=== PATIENT | female | born 1955 | race Two or more races ===

== ENCOUNTER 2018-05-19 07:37 | Day surgery (SDC) | payer BC ==
[2018-05-19] MEDS ORDERED: ALBUTEROL SULFATE 0.083% NEB 2.5 MG/3 ML AMPUL NEB ONE (07:54)
[2018-05-19] MEDS ORDERED: FAMOTIDINE INJ/PF 20 MG/2 ML SDV IV ONE (08:35)
[2018-05-19] MEDS ORDERED: METOCLOPRAMIDE HCL INJ/PF 10 MG/2 ML SDV ONE (08:38)
[2018-05-19] MEDS ORDERED: MIDAZOLAM 2 MG/2 ML INJ ONE (09:24)
[2018-05-19] MEDS ORDERED: LIDOCAINE 2% INJ-PF (20 MG/ML) 10 ML AMPUL ONE (09:37)
[2018-05-19] MEDS ORDERED: EPHEDRINE SULFATE INJ 50 MG/1 ML AMPULE ONE (09:38)
[2018-05-19] MEDS ORDERED: PROPOFOL INJ 200 MG/20 ML VIAL IV ONE (09:38)
[2018-05-19] MEDS ORDERED: DEXMEDETOMIDINE INJ 80 MCG/20 ML VIAL IV ONE (09:38)
[2018-05-19] MEDS ORDERED: PROMETHAZINE HCL INJ 25 MG/1 ML VIAL IV PRN (10:42)
[2018-05-19] MEDS ORDERED: FENTANYL CITRATE INJ/PF 100 MCG/2 ML AMPUL IV PRN (10:42)
[2018-05-19] MEDS ORDERED: DIPHENHYDRAMINE HCL 50 MG/ML VIAL IV PRN (10:42)
[2018-05-19 12:57] VITALS: BP 133/62
--- NOTE | 2018-05-19 20:17 | Operative Report ---
Operative Report DATE OF SURGERY: 05/19/18 Operative Report: The risks, benefits and alternatives of the procedure are explained to the patient in detail informed consent is obtained time out is called Propofol medication is provided rectal exam is performed the Olympus videoscope is introduced and advanced to the cecum the prep was good photodocumentation is obtained the scope is slowly withdrawn tubular and concentric views of the colon are obtained retroflexion is performed following this the EGD is performed the esophagus, stomach and duodenum are examined PREOPERATIVE DIAGNOSIS: epigatric pain. change in bowel habits POSTOPERATIVE DIAGNOSIS: right side colon inflammation, biopsy obtained to rule out lymphocytic colitis. internal hemorrhoids. gastritis , biopsy to rule out H.Pylori OPERATION: colonoscopy with biopsy. EGD with biopsy SURGEON: RAJANI VILLAFANA ANESTHESIA: LMAC TISSUE REMOVED OR ALTERED: as noted above COMPLICATIONS: none ESTIMATED BLOOD LOSS: none INTRAOPERATIVE FINDINGS: as noted above PROCEDURE: patient tolerated the procedure well no post procedure complications are noted patient is discharge in good condition discharge date: 05/19/18 discharge activity: regular discharge diet: regular follow up in 2-3 weeks patient is instructed to call the office or go to ED if any problems wait on the biopsy
--- NOTE | 2018-05-19 21:19 | EKG REPORT ---
SEVERITY:- NORMAL ECG - SINUS RHYTHM : Confirmed by: Martin Cates 19-May-2018 21:19:17
== END 2018-05-19 12:35 | disposition home or self-care (01) ==
LOC: OROUT 07:37
PROVIDERS: ATTEND Internal Medicine Gastroenterology
DX: K29.50 Unspecified chronic gastritis without bleeding (principal); K52.9 Noninfective gastroenteritis and colitis, unspecified; K64.8 Other hemorrhoids; K21.9 Gastro-esophageal reflux disease without esophagitis; K92.1 Melena; I10 Essential (primary) hypertension; Z79.899 Other long term (current) drug therapy; Z87.11 Personal history of peptic ulcer disease; Z87.19 Personal history of other diseases of the digestive system
CPT/HCPCS: 43239; 45380; 88305 ×2; 93005; 93010; 94640; J2250; J3490 ×3; J2765; J2704; S0028; 813

== ENCOUNTER → 2018-05-20 | Outpatient (CLI) | payer BC ==
--- NOTE | 2018-05-20 11:59 | RADIOLOGY REPORT (SQ) ---
EXAM DESCRIPTION: MRI LUMBAR SPINE WITHOUT COMPLETED DATE/TIME: 05/20/2018 9:14 am REASON FOR STUDY: LOW BACK PAIN (M54.5) M54.5 LOW BACK PAIN COMPARISON: None. TECHNIQUE: Sagittal and Axial imaging includes T1, T2, STIR and gradient echo sequences. Coronal T2/ HASTE imaging. LIMITATIONS: None. FINDINGS: VISUALIZED UPPER ABDOMEN: Limited evaluation. No acute or suspicious findings suggested. SEGMENTATION: No transitional anatomy. The lowest well-developed disc space is labeled L5-S1. ALIGNMENT: Anatomic. VERTEBRAE: Intact. BONE MARROW: Reactive fatty marrow endplate changes at L1-2, L3-4, and L4-5. DISC SIGNAL: Diffuse decreased T2 weighted intervertebral disc signal throughout the lumbar intervert ebral discs, with high-grade disc space loss of height at L3-4 POSTERIOR ELEMENTS: Generally intact. No pars defect evident. HARDWARE: None in the spine. CORD AND CONUS: Normal in size and signal intensity. Conus at the L1-2 level. SOFT TISSUES: No aortic aneurysm seen. No bulky retroperitoneal adenopathy or mass. No paraspinal mas s or fluid. T11-12: Mild bilateral facet arthropathy. No central or foraminal stenosis. T12-L1: Mild bilateral facet arthropathy. No central or foraminal stenosis. L1-L2: Mild bilateral facet arthropathy. Broad diffuse posterior disc bulging is present without si gnificant central or foraminal encroachment. L2-3: Broad diffuse posterior disc bulging is present right slightly greater than left with mild taylor ateral facet and ligament hypertrophy. Borderline central canal narrowing. Mild right inferior fora mj narrowing without exiting L1 nerve root impingement. No significant left-sided foraminal narro wing. L3-4: Minimal posterior disc bulging is present, mild bilateral facet and ligament hypertrophy. No central stenosis. Mild bilateral foraminal narrowing without exiting nerve root impingement. L4-5: Diffuse posterior disc bulge and bony spurring, asymmetric facet and ligament hypertrophy righ t greater than left. There is asymmetric flattening of the rightward thecal sac by ligamentum flavum thickening, near the takeoff of the right proximal L5 nerve root in the lateral recess best shown on axial T2 images 21 and 22. Borderline central canal narrowing. Mild bilateral inferior foraminal n arrowing without exit L4 nerve root impingement. L5-S1: No central stenosis. Mild bilateral inferior foraminal narrowing from disc bulge and facet hy pertrophy left greater than right. No exiting L5 nerve root impingement. SACRUM: Visualized upper sacrum intact. OTHER: No other significant findings. IMPRESSION: Mild diffuse degenerative changes as above. TECHNICAL DOCUMENTATION: JOB ID: [id number] [employer]- All Rights Reserved Reading location - IP/workstation name: [email or web address]
== END ==
LOC: RAD 08:07
PROVIDERS: ATTEND Orthopaedic Surgery
DX: M54.5 Low back pain (principal)
CPT/HCPCS: 72148

== ENCOUNTER 2018-06-03 23:23 | Emergency (ER) | payer BC ==
[2018-06-04] MEDS ORDERED: OXYCODONE-ACETAMINOPHEN 5-325 MG TABLET PO ONE (01:02)
[2018-06-04] MEDS ORDERED: PROMETHAZINE HCL 25 MG TABLET PO ONE (01:03)
[2018-06-04] MEDS ORDERED: SUCRALFATE 1 GM TABLET PO ONE (01:03)
--- NOTE | 2018-06-04 01:08 | ER Document Report ---
ED General - General Chief Complaint: General Weakness Stated Complaint: BLOOD PRESSURE ISSUES Time Seen by Provider: 06/04/18 00:52 Notes: Patient is a 62-year-old female comes emergency department for chief complaint of upper abdominal pain, vomiting, elevated blood pressure, pain in her chest. Symptoms started in the morning. She states that she did not want to eat anything, then started feeling worse, started vomiting, started having pain in her chest afterwards. She denies cough, shortness of breath, fever, headache. She takes a PPI, has had an endoscopy, has a history of Chowdhury's esophagus although daughter states that recent endoscopy was very good. She does not smoke, denies alcohol, denies any cardiac history, denies any surgeries other than hysterectomy, denies any other medical history. TRAVEL OUTSIDE OF THE [place] IN LAST 30 DAYS: No - Related Data Allergies/Adverse Reactions: No Known Allergies Allergy (Verified 05/19/18 08:03) Past Medical History - General Information source: Patient - Social History Smoking Status: Never Smoker Frequency of alcohol use: None Drug Abuse: None Lives with: Family Family History: Reviewed & Not Pertinent - Past Medical History Cardiac Medical History: Reports: Hx Hypertension Denies: Hx Coronary Artery Disease, Hx Heart Attack Pulmonary Medical History: Reports: Hx Asthma - pt uses inhalers, Hx Bronchitis , Hx Pneumonia Denies: Hx COPD Neurological Medical History: Denies: Hx Cerebrovascular Accident, Hx Seizures GI Medical History: Reports: Hx Gastroesophageal Reflux Disease, Hx Ulcer Musculoskeletal Medical History: Reports Hx Arthritis Past Surgical History: Reports: Hx Cholecystectomy. Denies: Hx Hysterectomy - Immunizations Hx Diphtheria, Pertussis, Tetanus Vaccination: No Review of Systems - Review of Systems Constitutional: No symptoms reported EENT: No symptoms reported Cardiovascular: See HPI Respiratory: No symptoms reported Gastrointestinal: See HPI Genitourinary: No symptoms reported Female Genitourinary: No symptoms reported Musculoskeletal: No symptoms reported Skin: No symptoms reported Hematologic/Lymphatic: No symptoms reported Neurological/Psychological: No symptoms reported Physical Exam - Vital signs Vitals: Temp Pulse Resp BP Pulse Ox 97.7 F 81 20 184/71 H 98 06/03/18 23:32 06/03/18 23:32 06/03/18 23:32 06/03/18 23:32 06/03/18 23:32 - Notes Notes: GENERAL: Alert, interacts well. No acute distress. HEAD: Normocephalic, atraumatic. EYES: Pupils equal, round, and reactive to light. Extraocular movements intact. ENT: Oral mucosa moist, tongue midline. NECK: Full range of motion. Supple. Trachea midline. LUNGS: Clear to auscultation bilaterally, no wheezes, rales, or rhonchi. No respiratory distress. HEART: Regular rate and rhythm. No murmur ABDOMEN: Mild left lower quadrant and epigastric tenderness, no right upper quadrant pain, lower abdomen is completely benign. No distention. Bowel sounds normal in all quadrants. EXTREMITIES: Moves all 4 extremities spontaneously. No edema, normal radial and dorsalis pedis pulses bilaterally. No cyanosis. BACK: no cervical, thoracic, lumbar midline tenderness. No saddle anesthesia, normal distal neurovascular exam. NEUROLOGICAL: Alert and oriented x3. Normal speech. [cranial nerves II through XII grossly intact]. PSYCH: Normal affect, normal mood. SKIN: Warm, dry, normal turgor. No rashes or lesions noted. Course - Re-evaluation Re-evalutation: Patient is Burkinan-speaking primarily, she requests that her daughter interpret for her. On my evaluation patient is complaining of pain in her upper abdomen, this is mild on examination, remaining physical examination is unremarkable. Patient given p.o. medications. EKG with no T-wave inversions or ST segment changes in consecutive leads, no acute findings. Chest x-ray unremarkable. CBC shows mild leukocytosis, nonspecific. Chemistry is unremarkable. Lipase is not elevated. Troponin is not elevated despite symptoms starting over 12 hours ago. After medications symptoms completely resolved. Patient taking water without any difficulty. No complaints on reevaluation. Evaluation is consistent with inflammation of the upper abdomen. Blood pressure improved. No tachycardia, hypotension, or fever. Low suspicion of ACS, pulmonary embolism , aortic dissection, or acute abdomen based on her vital signs, symptoms, evaluation, and workup. Patient and family are requesting to leave. Discussed treatments at home, follow-up, and return precautions in detail. They state understanding and agreement. - Vital Signs Vital signs: Temp Pulse Resp BP Pulse Ox 98.6 F 81 20 153/58 H 97 06/04/18 03:02 06/03/18 23:38 06/03/18 23:38 06/04/18 03:02 06/04/18 03:02 - Laboratory Result Diagrams: 06/04/18 01:50 08/17/18 01:50 Laboratory results interpreted by me: 06/04/18 06/04/18 01:50 01:50 WBC 14.6 H Absolute Neutrophils 10.4 H Carbon Dioxide 21 L Glucose 115 H Total Protein 8.5 H Discharge - Discharge Clinical Impression: Upper abdominal pain, Anxiety Vomiting Qualifiers: Vomiting type: unspecified Vomiting Intractability: non-intractable Nausea presence: with nausea Qualified Code(s): R11.2 - Nausea with vomiting, unspecified Condition: Stable Disposition: HOME, SELF-CARE Additional Instructions: Simon dolor parece provenir de la parte superior de simon tracto gastrointestinal. Comience con lquidos, luego alimentos suaves y progrese lentamente. Evite la cafena, los alimentos picantes, el alcohol y los antiinflamatorios no esteroideos (ibuprofeno, naproxeno, aspirina). Trinidad los medicamentos recetados. Ton un seguimiento con simon mdico esta semana. Regrese si empeora (vmitos, v mitos, heces negras, fiebre, desmayos, dolor jamel, etc.) Prescriptions: Famotidine [Pepcid 20 mg Tablet] 20 mg PO BID #12 tablet Ondansetron [Zofran Odt 4 mg Tablet] 1 - 2 tab PO Q4H PRN #15 tab.rapdis PRN Reason: For Nausea/Vomiting Sucralfate [Carafate 1 gm Tablet] 1 gm PO QID #20 tablet Forms: Treatment of Relative/Child Referrals: MARIO ISRAEL PA-C [Primary Care Provider] - Follow up as needed
--- NOTE | 2018-06-04 01:49 | RADIOLOGY REPORT (SQ) ---
EXAM DESCRIPTION: XR CHEST 1 VIEW COMPLETED DATE/TME: 06/04/2018 01:02 CLINICAL HISTORY: 62 years Female, chest pain COMPARISON: 08/22/2014. NUMBER OF VIEWS/TECHNIQUE: 1/AP FINDINGS: Adequate lung volume, small bandlike left basilar atelectasis or scar, normal cardiac silhouette, and intact bony thorax. IMPRESSION: No acute cardiopulmonary findings.
[2018-06-04 02:12] LABS: ABSOLUTE BASOPHILS # (AUTO) 0.1 10^3/uL (0.0-0.2); ABSOLUTE LYMPHOCYTES (AUTO) 3.4 10^3/uL (0.5-4.7); ABSOLUTE MONOCYTES (AUTO) 0.6 10^3/uL (0.1-1.4); ABSOLUTE NEUT (AUTO) 10.4 10^3/uL (1.7-8.2); BASOPHILS % (AUTO) 0.8 % (0-2); EOSINOPHILS % (AUTO) 0.2 % (0-6); HEMATOCRIT 39.6 % (36.0-47.0); HEMOGLOBIN 13.1 g/dL (12.0-15.5); LYMPHOCYTES % (AUTO) 23.4 % (13-45); MEAN CORPUSCULAR HEMOGLOBIN 29.2 pg (27.0-33.4); MEAN CORPUSCULAR VOLUME 89 fl (80-97); PLATELET COUNT 287 10^3/uL (150-450); RED BLOOD COUNT 4.47 10^6/uL (3.72-5.28); RED CELL DISTRIBUTION WIDTH 13.8 % (11.5-14.0); SEGMENTED NEUTROPHILS % (AUTO) 71.6 % (42-78); TOTAL CELLS COUNTED % (AUTO) 100 %; WHITE BLOOD COUNT 14.6 10^3/uL (4.0-10.5)
[2018-06-04 02:25] LABS: ALANINE AMINOTRANSFERASE 32 U/L (9-52); ALBUMIN 4.8 g/dL (3.5-5.0); ALKALINE PHOSPHATASE 75 U/L (38-126); ANION GAP 17 (5-19); ASPARTATE AMINO TRANSFERASE 32 U/L (14-36); BILIRUBIN,DIRECT 0.4 mg/dL (0.0-0.4); BILIRUBIN,TOTAL 0.6 mg/dL (0.2-1.3); BLOOD UREA NITROGEN 14 mg/dL (7-20); CALCIUM 9.6 mg/dL (8.4-10.2); CARBON DIOXIDE 21 mmol/L (22-30); CHLORIDE 104 mmol/L (98-107); GLUCOSE 115 mg/dL (75-110); LIPASE 109.3 U/L (23-300); POTASSIUM 4.6 mmol/L (3.6-5.0); SODIUM 141.6 mmol/L (137-145); TOTAL PROTEIN 8.5 g/dL (6.3-8.2)
[2018-06-04] MEDS ORDERED: ONDANSETRON ODT 4 MG TAB (6 TAB/ER DISP) PO PRN (03:17)
[2018-06-04] MEDS ORDERED: HYDROCODONE/ACETAMINOPHEN 5-325 MG (6 TAB/ER DISP) PO PRN (03:17)
[2018-06-04 03:26] VITALS: BP 153/58
--- NOTE | 2018-06-04 07:14 | EKG REPORT ---
SEVERITY:- BORDERLINE ECG - SINUS RHYTHM BORDERLINE T ABNORMALITIES, ANTERIOR LEADS : Confirmed by: Luis Milner MD 04-Jun-2018 07:13:54
== END 2018-06-04 03:30 | disposition home or self-care (01) ==
LOC: ER 23:23
DX: F41.9 Anxiety disorder, unspecified (principal); R10.10 Upper abdominal pain, unspecified; R11.2 Nausea with vomiting, unspecified; R53.83 Other fatigue; I10 Essential (primary) hypertension; Z90.49 Acquired absence of other specified parts of digestive tract
CPT/HCPCS: 36415; 71045; 80053; 83690; 84484; 85025; 93005; 93010; 99285

== ENCOUNTER → 2019-09-09 | Outpatient (CLI) | payer BC ==
--- NOTE | 2019-09-09 14:49 | RADIOLOGY REPORT (SQ) ---
EXAM DESCRIPTION: LUMBAR SPINE COMPLETE COMPLETED DATE/TIME: 09/09/2019 12:39 pm REASON FOR STUDY: ACUTE ANNETTE LOW BACK PAIN WITH RIGHT SIDED SCIATICA M54.41 LUMBAGO WITH SCIATICA, R IGHT SIDE COMPARISON: None. NUMBER OF VIEWS: Five views including obliques. TECHNIQUE: AP, lateral, oblique, and sacral radiographic images acquired of the lumbar spine. LIMITATIONS: None. FINDINGS: MINERALIZATION: Normal. SEGMENTATION: Normal. No transitional anatomy. ALIGNMENT: Mild levoscoliosis. VERTEBRAE: Maintained height. No fracture or worrisome bone lesion. DISCS: Disc spaces are narrowed from L3-S1. POSTERIOR ELEMENTS: Hypertrophic facet changes L3-S1. HARDWARE: None in the spine. PARASPINAL SOFT TISSUES: Normal. PELVIS: Intact as visualized. No fractures or worrisome bone lesions. SI joints intact. OTHER: No other significant finding. IMPRESSION: Degenerative disc disease. Facet arthropathy. TECHNICAL DOCUMENTATION: JOB ID: [id number] [employer]- All Rights Reserved Reading location - IP/workstation name: [email or web address]
== END ==
LOC: OD 12:06
PROVIDERS: ATTEND Family Medicine
DX: M54.41 Lumbago with sciatica, right side (principal)
CPT/HCPCS: 72110

== ENCOUNTER → 2020-06-22 | Outpatient (CLI) | payer BC ==
--- NOTE | 2020-06-22 18:20 | RADIOLOGY REPORT (SQ) ---
EXAM DESCRIPTION: ACUTE ABDOMEN SERIES IMAGES COMPLETED DATE/TIME: 06/22/2020 1:20 pm REASON FOR STUDY: LEFT UPPER QUADRANT PAIN R10.12 LEFT UPPER QUADRANT PAIN COMPARISON: 2018 chest films. NUMBER OF VIEWS: Three views. TECHNIQUE: Frontal chest, supine abdomen and upright/decubitus abdomen radiographic images acquired. LIMITATIONS: None. FINDINGS: CHEST: Mildly asymmetric right apical scar and pleural thickening, chronic. Lungs otherwi se clear. FREE AIR: None. No abnormal gas collections. BOWEL GAS PATTERN: Nonobstructive pattern without dilated loops or air-fluid levels. Moderate stool. CALCIFICATIONS: No suspicious calcifications. HARDWARE: None in the abdomen. SOFT TISSUES: No gross mass or suggestion of organomegaly. BONES: No acute fracture. No worrisome bone lesions. OTHER: No other significant finding. IMPRESSION: NO RADIOGRAPHIC EVIDENCE FOR ACUTE ABDOMINAL DISEASE. TECHNICAL DOCUMENTATION: JOB ID: [id number] 2010 [employer]- All Rights Reserved Reading location - IP/workstation name: [email or web address]
== END ==
LOC: RAD 12:57
PROVIDERS: ATTEND Family Medicine
DX: R10.12 Left upper quadrant pain (principal)
CPT/HCPCS: 74022

== ENCOUNTER → 2020-06-28 | Outpatient (CLI) | payer BC ==
--- NOTE | 2020-06-28 10:33 | RADIOLOGY REPORT (SQ) ---
EXAM DESCRIPTION: CT ABDOMEN ORAL CONTRAST ONLY IMAGES COMPLETED DATE/TIME: 06/28/2020 7:45 am REASON FOR STUDY: LUQ ABDOMINAL PAIN R10.12 LEFT UPPER QUADRANT PAIN COMPARISON: None. TECHNIQUE: CT scan of the abdomen performed without intravenous contrast and with oral contrast. Im ages reviewed with lung, soft tissue, and bone windows. Reconstructed coronal and sagittal MPR image s reviewed. All images stored on PACS. All CT scanners at this facility use dose modulation, iterative reconstruction, and/or weight based d osing when appropriate to reduce radiation dose to as low as reasonably achievable (ALARA). [facility]: Dose Right [facility]: CareDose [facility]: Dose Right [facility]: Teradose 4D [facility]: [employer] RADIATION DOSE: CT Rad equipment meets quality standard of care and radiation dose reduction techniq ues were employed. CTDIvol: 5.8 mGy. DLP: 185 mGy-cm.mGy. LIMITATIONS: None. FINDINGS: LOWER CHEST: No significant findings. No nodules or infiltrates. NONCONTRASTED LIVER, SPLEEN, ADRENALS: Evaluation limited by lack of IV contrast. No identified sign ificant masses. PANCREAS: No masses. No peripancreatic inflammatory changes. GALLBLADDER: Surgically absent. RIGHT KIDNEY AND URETER: No suspicious masses. Assessment limited by lack of IV contrast. No signif icant calcifications. No hydronephrosis or hydroureter. LEFT KIDNEY AND URETER: No suspicious masses. Assessment limited by lack of IV contrast. No signifi cant calcifications. No hydronephrosis or hydroureter. AORTA AND RETROPERITONEUM: No aneurysm. No retroperitoneal masses or adenopathy. BOWEL AND PERITONEAL CAVITY: No obvious masses or inflammatory changes. No free fluid. APPENDIX: Not visualized. ABDOMINAL WALL: No abdominal wall hernias. BONES: No significant findings. OTHER: No other significant finding. IMPRESSION: NO SIGNIFICANT OR ACUTE ABDOMINAL PROCESS. TECHNICAL DOCUMENTATION: JOB ID: [id number] Quality ID # [id number]: Final reports with documentation of one or more dose reduction techniques (e.g., Au tomated exposure control, adjustment of the mA and/or kV according to patient size, use of iterative reconstruction technique) 2010 [employer]- All Rights Reserved Reading location - IP/workstation name: [email or web address]
== END ==
LOC: RAD 07:24
PROVIDERS: ATTEND Family Medicine
DX: R10.12 Left upper quadrant pain (principal)
CPT/HCPCS: 74150

== ENCOUNTER → 2020-10-29 | Outpatient (CLI) | payer BC ==
--- NOTE | 2020-10-29 16:06 | RADIOLOGY REPORT (SQ) ---
EXAM DESCRIPTION: CT ABDOMEN COMBO IMAGES COMPLETED DATE/TIME: 10/29/2020 2:04 pm REASON FOR STUDY: (R10.11)RIGHT UPPER QUADRANT PAIN R10.11 RIGHT UPPER QUADRANT PAIN COMPARISON: 06/28/2020 TECHNIQUE: CT scan of the abdomen performed with and without intravenous contrast, and without oral contrast. Contrasted imaging performed using helical scanning technique with dynamic intravenous cont rast injection. Images reviewed with lung, soft tissue, and bone windows. Reconstructed coronal and s agittal MPR images reviewed. Delayed images for evaluation of the urinary system also acquired and ev aluated. All images stored on PACS. All CT scanners at this facility use dose modulation, iterative reconstruction, and/or weight based d osing when appropriate to reduce radiation dose to as low as reasonably achievable (ALARA). [facility]: Dose Right [facility]: CareDose [facility]: Dose Right [facility]: Teradose 4D [facility]: [employer] CONTRAST TYPE AND DOSE: contrast/concentration: Isovue mmol/ml; Total Contrast Delivered: 80.0 ml; Total Saline Delivered: 44.0 ml RENAL FUNCTION: Not provided. RADIATION DOSE: CT Rad equipment meets quality standard of care and radiation dose reduction techniq ues were employed. CTDIvol: 8.9 - 8.9 mGy. DLP: 869 mGy-cm.. LIMITATIONS: None. FINDINGS: NONCONTRASTED IMAGING: No significant renal calcifications. No other significant organ ronan cifications. POSTCONTRASTED IMAGING: LOWER CHEST: No significant findings. No nodules or infiltrates. LIVER: Normal size. No masses. No dilated ducts. SPLEEN: Normal size. No focal lesions. PANCREAS: No masses. No significant calcifications. No adjacent inflammation or peripancreatic fluid collections. Pancreatic duct not dilated. GALLBLADDER: Surgically absent. ADRENAL GLANDS: No significant masses or asymmetry. RIGHT KIDNEY AND URETER: No solid masses. No significant calcification. No hydronephrosis or hydroure ter. LEFT KIDNEY AND URETER: No solid masses. No significant calcification. No hydronephrosis or hydrouret er. AORTA AND VESSELS: No aneurysm. No dissection. Renal arteries, SMA, celiac without stenosis. RETROPERITONEUM: No retroperitoneal adenopathy, hemorrhage or masses. BOWEL AND PERITONEAL CAVITY: At least moderate stool. No evidence of mechanical bowel obstruction as assessed. No upper abdominal ascites or abnormal gas. APPENDIX: Not visualized. ABDOMINAL WALL: No masses. No hernias. BONES: No significant or acute findings. OTHER: No other significant finding. IMPRESSION: NO SIGNIFICANT OR ACUTE ABNORMALITY IN THE ABDOMEN. TECHNICAL DOCUMENTATION: JOB ID: [id number] Quality ID # [id number]: Final reports with documentation of one or more dose reduction techniques (e.g., Au tomated exposure control, adjustment of the mA and/or kV according to patient size, use of iterative reconstruction technique) 2010 [employer]- All Rights Reserved Reading location - IP/workstation name: [email or web address]
== END ==
LOC: RAD 14:01
PROVIDERS: ATTEND Family Medicine
DX: R10.11 Right upper quadrant pain (principal)
CPT/HCPCS: 74170; 82565